=== PATIENT | female | born 1955 | race Caucasian/White ===

== ENCOUNTER → 2023-06-23 10:54 | Outpatient (REF) | payer OTHER, SELFPAY ==
[2023-06-23 12:46] LABS: % Basophils 0.7 % (0-2); % Eosinophils 3.2 % (0-6); % Immature Granulocytes 0.2 % (0-0.5); % Lymphocytes 45.5 % (20.5-51.1); % Monocytes 9.7 % (1.7-9.3); % Neutrophils 40.7 % (42.2-75.2); Absolute Eosinophils 0.1 10^3/uL (0-0.7); Absolute Monocytes 0.4 10^3/uL (0.1-0.6); Absolute Neutrophils 1.8 10^3/uL (1.4-6.5); Hematocrit 42.8 % (37.0-47.0); Hemoglobin 13.9 g/dL (12.0-16.0); Mean Corp Hgb Conc. 32.5 g/dL (33.0-37.0); Mean Corpuscular Hgb 30.8 pg (27.0-31.0); Mean Corpuscular Volume 94.7 fL (81.0-99.0); Mean Platelet Volume 10.6 fL (7.4-10.4); Nucleated Red Blood Cells % 0 %; Platelet Count 213 10^3/uL (130-400); Red Blood Cell Count 4.52 10^6/uL (4.20-5.40); Red Cell Dist. Width 12.5 % (11.5-14.5); White Blood Cell Count 4.3 10^3/uL (4.8-10.8)
[2023-06-23 12:49] LABS: Urine Albumin Negative (Neg - Trace); Urine Bilirubin Negative (Negative); Urine Character Clear (Clear); Urine Color Yellow; Urine Glucose Negative (Negative); Urine Ketone Negative (Negative); Urine Leukocyte Negative (Negative); Urine Nitrite Negative (Negative); Urine Occult Blood Negative (Negative); Urine Urobilinogen Negative (Neg - 1+)
[2023-06-23 13:03] LABS: ALT (SGPT) 32 U/L (0-35); AST (SGOT) 36 U/L (14-36); Albumin 4.4 g/dl (3.5-5.0); Alkaline Phosphatase 169 U/L (38-126); Blood Urea Nitrogen 18 mg/dl (7-17); Carbon Dioxide 28 mmol/L (22-30); Chloride 102 mmol/L (98-107); Glucose 106 mg/dl (70-99); HDL Cholesterol 87 mg/dl; LDL Cholesterol, Calculated 73 mg/dl; Potassium 4.4 mmol/L (3.5-5.1); Sodium 138 mmol/L (135-145); Total Bilirubin 0.5 mg/dl (0.2-1.3); Total Cholesterol 186 mg/dl (50-199); Total Protein 6.6 g/dl (6.3-8.2); Triglyceride 133 mg/dl (10-149); Very Low Density Lipoprotein 26 mg/dl (0-30); eGFR > 60.00
[2023-06-23 13:34] LABS: TSH Reflex To Free T4 2.06 uIU/ml (0.47-4.68)
[2023-06-23 14:10] LABS: Glycohemoglobin (HgbA1c) 5.8 % (4.0-5.6)
== END ==
LOC: HWLAB 10:54
PROVIDERS: ATTENDING PHYSICIAN Nurse Practitioner Family
DX: Z48.89 Encounter for other specified surgical aftercare (principal); K86.89 Other specified diseases of pancreas; Z01.89 Encounter for other specified special examinations; R73.09 Other abnormal glucose; E66.9 Obesity, unspecified; E55.9 Vitamin D deficiency, unspecified
CPT/HCPCS: 36415; 80053; 80061; 81003; 82306; 83036; 84443; 85025

== ENCOUNTER → 2023-06-29 11:13 | Outpatient (REF) | payer OTHER, SELFPAY ==
[2023-06-29 16:43] LABS: ALT (SGPT) 29 U/L (0-35); AST (SGOT) 33 U/L (14-36); Albumin 4.6 g/dl (3.5-5.0); Alkaline Phosphatase 185 U/L (38-126); Blood Urea Nitrogen 24 mg/dl (7-17); Calcium 10.3 mg/dl (8.4-10.2); Carbon Dioxide 27 mmol/L (22-30); Chloride 105 mmol/L (98-107); GGTP 57 U/L (12-43); Glucose 106 mg/dl (70-99); Potassium 4.5 mmol/L (3.5-5.1); Sodium 138 mmol/L (135-145); Total Bilirubin 0.6 mg/dl (0.2-1.3); Total Protein 6.9 g/dl (6.3-8.2); eGFR > 60.00
[2023-07-01 12:13] LABS: Intact PTH 70.5 pg/ml (13.6-85.8)
== END ==
LOC: HWLAB 11:13
PROVIDERS: ATTENDING PHYSICIAN Nurse Practitioner Family; FAMILY PHYSICIAN Internal Medicine
DX: R74.8 Abnormal levels of other serum enzymes (principal)
CPT/HCPCS: 36415; 80053; 82977; 83970

== ENCOUNTER → 2023-08-31 11:30 | Outpatient (REF) | payer OTHER, SELFPAY ==
[2023-08-31 16:57] LABS: ALT (SGPT) 31 U/L (0-35); AST (SGOT) 35 U/L (14-36); Albumin 4.5 g/dl (3.5-5.0); Alkaline Phosphatase 171 U/L (38-126); Blood Urea Nitrogen 23 mg/dl (7-17); Calcium 10.3 mg/dl (8.4-10.2); Carbon Dioxide 26 mmol/L (22-30); Chloride 105 mmol/L (98-107); GGTP 46 U/L (12-43); Glucose 109 mg/dl (70-99); Potassium 4.6 mmol/L (3.5-5.1); Sodium 139 mmol/L (135-145); Total Bilirubin 0.4 mg/dl (0.2-1.3); Total Protein 6.8 g/dl (6.3-8.2); eGFR > 60.00
== END ==
LOC: HWLAB 11:30
PROVIDERS: ATTENDING PHYSICIAN Internal Medicine
DX: R74.8 Abnormal levels of other serum enzymes (principal)
CPT/HCPCS: 36415; 80053; 82977

== ENCOUNTER → 2023-11-22 11:13 | Outpatient (REF) | payer OTHER, SELFPAY | LOC: MRI 3T 11:13 | PROVIDERS: ATTENDING PHYSICIAN Student in an Organized Health Care Education/Training Program; FAMILY PHYSICIAN Internal Medicine | DX: M25.511 Pain in right shoulder (principal) | CPT/HCPCS: 73221 ==

== ENCOUNTER → 2023-12-15 12:00 | Outpatient (REF) | payer OTHER, SELFPAY ==
[2023-12-15 16:21] LABS: Blood Urea Nitrogen 23 mg/dl (7-17); Calcium 10.9 mg/dl (8.4-10.2); Carbon Dioxide 29 mmol/L (22-30); Chloride 103 mmol/L (98-107); Glucose 103 mg/dl (70-99); Potassium 4.9 mmol/L (3.5-5.1); Sodium 141 mmol/L (135-145); eGFR > 60.00
[2023-12-15 16:23] LABS: % Basophils 0.6 % (0-2); % Eosinophils 2.2 % (0-6); % Immature Granulocytes 0.2 % (0-0.5); % Lymphocytes 32.9 % (20.5-51.1); % Monocytes 8.6 % (1.7-9.3); % Neutrophils 55.5 % (42.2-75.2); Absolute Eosinophils 0.1 10^3/uL (0-0.7); Absolute Lymphocytes 1.6 10^3/uL (1.2-3.4); Absolute Monocytes 0.4 10^3/uL (0.1-0.6); Absolute Neutrophils 2.8 10^3/uL (1.4-6.5); Hematocrit 43.5 % (37.0-47.0); Hemoglobin 14.6 g/dL (12.0-16.0); Mean Corp Hgb Conc. 33.6 g/dL (33.0-37.0); Mean Corpuscular Volume 95.4 fL (81.0-99.0); Mean Platelet Volume 10.8 fL (7.4-10.4); Nucleated Red Blood Cells % 0 %; Platelet Count 203 10^3/uL (130-400); Red Blood Cell Count 4.56 10^6/uL (4.20-5.40); Red Cell Dist. Width 12.3 % (11.5-14.5)
== END ==
LOC: HWLAB 12:00
PROVIDERS: ATTENDING PHYSICIAN Orthopaedic Surgery Hand Surgery; FAMILY PHYSICIAN Internal Medicine
DX: Z01.818 Encounter for other preprocedural examination (principal)
CPT/HCPCS: 36415; 80048; 85025; 93005

== ENCOUNTER → 2024-03-22 10:56 | Outpatient (REF) | payer OTHER, SELFPAY | LOC: HWWDC 10:56 | PROVIDERS: ATTENDING PHYSICIAN Internal Medicine; REFERRING PHYSICIAN Obstetrics & Gynecology | DX: Z12.31 Encounter for screening mammogram for malignant neoplasm of breast (principal) | CPT/HCPCS: 77063; 77067 ==

== ENCOUNTER → 2024-05-11 09:13 | Outpatient (REF) | payer OTHER, SELFPAY ==
[2024-05-11 10:09] LABS: % Basophils 0.5 % (0-2); % Eosinophils 3.5 % (0-6); % Immature Granulocytes 0.3 % (0-0.5); % Lymphocytes 32.1 % (20.5-51.1); % Monocytes 7.4 % (1.7-9.3); % Neutrophils 56.2 % (42.2-75.2); Absolute Eosinophils 0.2 10^3/uL (0-0.7); Absolute Lymphocytes 1.9 10^3/uL (1.2-3.4); Absolute Monocytes 0.4 10^3/uL (0.1-0.6); Absolute Neutrophils 3.3 10^3/uL (1.4-6.5); Hematocrit 46.1 % (37.0-47.0); Mean Corp Hgb Conc. 32.5 g/dL (33.0-37.0); Mean Corpuscular Hgb 30.3 pg (27.0-31.0); Mean Corpuscular Volume 93.1 fL (81.0-99.0); Mean Platelet Volume 10.3 fL (7.4-10.4); Nucleated Red Blood Cells % 0 %; Platelet Count 210 10^3/uL (130-400); Red Blood Cell Count 4.95 10^6/uL (4.20-5.40); Red Cell Dist. Width 12.3 % (11.5-14.5); White Blood Cell Count 5.9 10^3/uL (4.8-10.8)
[2024-05-11 10:10] LABS: Ionized Calcium 1.35 mMOL/L (1.15-1.33)
[2024-05-11 10:31] LABS: ALT (SGPT) 37 U/L (0-35); AST (SGOT) 35 U/L (14-36); Albumin 4.8 g/dl (3.5-5.0); Alkaline Phosphatase 175 U/L (38-126); Blood Urea Nitrogen 20 mg/dl (7-17); Calcium 10.3 mg/dl (8.4-10.2); Carbon Dioxide 28 mmol/L (22-30); Chloride 102 mmol/L (98-107); Glucose 116 mg/dl (70-99); Potassium 4.3 mmol/L (3.5-5.1); Sodium 140 mmol/L (135-145); Total Bilirubin 0.3 mg/dl (0.2-1.3); Total Protein 7.2 g/dl (6.3-8.2); Uric Acid 3.9 mg/dl (2.5-6.2); eGFR > 60.00
[2024-05-11 10:36] LABS: Erythrocyte Sed Rate 4 mm/hour (0-20)
[2024-05-11 10:37] LABS: C-Reactive Protein < 5.00 mg/L (0.0-10.00)
[2024-05-11 10:54] LABS: Vitamin D, 25-OH*** 41.3 ng/mL (30-80)
[2024-05-14 04:02] LABS: Vitamin D 1,25 Dihydroxy 75.2 pg/mL (19.9-79.3)
[2024-05-14 07:43] LABS: CCP Antibody IgG/IgA 75 Units (0-19)
[2024-05-14 08:51] LABS: ANA, IgG Reflex to HEp-2 None Detected (None Detected)
[2024-05-14 09:13] LABS: Rheumatoid Agglutinin Less Than 10 IU (<10 IU)
== END ==
LOC: REG 09:13
PROVIDERS: ATTENDING PHYSICIAN Student in an Organized Health Care Education/Training Program; FAMILY PHYSICIAN Internal Medicine
DX: E83.52 Hypercalcemia (principal); M25.40 Effusion, unspecified joint; M25.561 Pain in right knee; M25.562 Pain in left knee; M25.60 Stiffness of unspecified joint, not elsewhere classified; M54.9 Dorsalgia, unspecified; M79.10 Myalgia, unspecified site; M79.641 Pain in right hand; M79.642 Pain in left hand; M79.674 Pain in right toe(s); M85.80 Other specified disorders of bone density and structure, unspecified site; Z82.69 Family history of other diseases of the musculoskeletal system and connective tissue
CPT/HCPCS: 36415; 80053; 82306; 82330; 82652; 84155; 84165; 84550; 85025; 85652; 86038; 86140; 86200; 86430

== ENCOUNTER → 2024-05-30 13:17 | Outpatient (REF) | payer OTHER, SELFPAY | LOC: HWRAD 13:17 | PROVIDERS: ATTENDING PHYSICIAN Student in an Organized Health Care Education/Training Program; FAMILY PHYSICIAN Internal Medicine | DX: E83.52 Hypercalcemia (principal); M25.40 Effusion, unspecified joint; M25.60 Stiffness of unspecified joint, not elsewhere classified; M79.10 Myalgia, unspecified site; M79.641 Pain in right hand; M79.642 Pain in left hand; M85.80 Other specified disorders of bone density and structure, unspecified site | CPT/HCPCS: 73120; 73564 ==

== ENCOUNTER → 2024-06-01 10:35 | Outpatient (REF) | payer OTHER, SELFPAY | LOC: HWRAD 10:35 | PROVIDERS: ATTENDING PHYSICIAN Student in an Organized Health Care Education/Training Program; FAMILY PHYSICIAN Internal Medicine | DX: E83.52 Hypercalcemia (principal); M25.40 Effusion, unspecified joint; M25.60 Stiffness of unspecified joint, not elsewhere classified; M79.10 Myalgia, unspecified site; M85.88 Other specified disorders of bone density and structure, other site; Z78.0 Asymptomatic menopausal state | CPT/HCPCS: 77080 ==

== ENCOUNTER → 2024-08-03 10:56 | Outpatient (REF) | payer OTHER, SELFPAY ==
[2024-08-03 15:34] LABS: Erythrocyte Sed Rate 1 mm/hour (0-20)
[2024-08-03 15:49] LABS: % Basophils 0.5 % (0-2); % Eosinophils 2.9 % (0-6); % Immature Granulocytes 0.2 % (0-0.5); % Lymphocytes 30.9 % (20.5-51.1); % Monocytes 8.3 % (1.7-9.3); % Neutrophils 57.2 % (42.2-75.2); Absolute Eosinophils 0.2 10^3/uL (0-0.7); Absolute Lymphocytes 1.7 10^3/uL (1.2-3.4); Absolute Monocytes 0.5 10^3/uL (0.1-0.6); Absolute Neutrophils 3.2 10^3/uL (1.4-6.5); Mean Corp Hgb Conc. 32.6 g/dL (33.0-37.0); Mean Corpuscular Hgb 30.7 pg (27.0-31.0); Mean Corpuscular Volume 94.3 fL (81.0-99.0); Mean Platelet Volume 10.9 fL (7.4-10.4); Nucleated Red Blood Cells % 0 %; Platelet Count 178 10^3/uL (130-400); Red Blood Cell Count 4.56 10^6/uL (4.20-5.40); Red Cell Dist. Width 11.9 % (11.5-14.5); White Blood Cell Count 5.6 10^3/uL (4.8-10.8)
[2024-08-03 15:53] LABS: C-Reactive Protein < 5.00 mg/L (0.0-10.00)
[2024-08-03 16:43] LABS: ALT (SGPT) 30 U/L (0-35); AST (SGOT) 33 U/L (14-36); Albumin 4.1 g/dl (3.5-5.0); Alkaline Phosphatase 191 U/L (38-126); Blood Urea Nitrogen 23 mg/dl (7-17); Calcium 10.2 mg/dl (8.4-10.2); Carbon Dioxide 29 mmol/L (22-30); Chloride 106 mmol/L (98-107); Glucose 111 mg/dl (70-99); Potassium 4.8 mmol/L (3.5-5.1); Sodium 140 mmol/L (135-145); Total Bilirubin 0.4 mg/dl (0.2-1.3); Total Protein 6.4 g/dl (6.3-8.2); eGFR > 60.00
[2024-08-03 17:08] LABS: Hepatitis B Surface Antigen Negative (Negative)
[2024-08-03 17:26] LABS: Hepatitis B Core Ab, Total Negative (Negative); Hepatitis B Surface Antibody Negative; Hepatitis C Antibody Negative (Negative)
== END ==
LOC: HWLAB 10:56
PROVIDERS: ATTENDING PHYSICIAN Student in an Organized Health Care Education/Training Program; FAMILY PHYSICIAN Internal Medicine
DX: E83.52 Hypercalcemia (principal); M05.9 Rheumatoid arthritis with rheumatoid factor, unspecified; M25.40 Effusion, unspecified joint; M25.561 Pain in right knee; M25.562 Pain in left knee; M25.60 Stiffness of unspecified joint, not elsewhere classified; M54.9 Dorsalgia, unspecified; M79.10 Myalgia, unspecified site; M79.641 Pain in right hand; M79.642 Pain in left hand; M79.674 Pain in right toe(s); M85.80 Other specified disorders of bone density and structure, unspecified site; Z79.899 Other long term (current) drug therapy; Z82.69 Family history of other diseases of the musculoskeletal system and connective tissue
CPT/HCPCS: 36415; 80053; 85025; 85652; 86140; 86704; 86706; 86803; 87340

== ENCOUNTER → 2024-08-07 09:47 | Outpatient (REF) | payer OTHER, SELFPAY ==
[2024-08-09 05:58] LABS: Quantiferon Mitogen minus NIL 9.95 IU/mL; Quantiferon NIL 0.05 IU/mL; Quantiferon TB Gold Plus Negative (Negative)
== END ==
LOC: HWLAB 09:47
PROVIDERS: ATTENDING PHYSICIAN Student in an Organized Health Care Education/Training Program; FAMILY PHYSICIAN Internal Medicine
DX: Z79.899 Other long term (current) drug therapy (principal); E83.52 Hypercalcemia; M05.9 Rheumatoid arthritis with rheumatoid factor, unspecified; M25.40 Effusion, unspecified joint; M25.561 Pain in right knee; M25.562 Pain in left knee; M25.60 Stiffness of unspecified joint, not elsewhere classified; M54.9 Dorsalgia, unspecified; M79.10 Myalgia, unspecified site; M79.641 Pain in right hand; M79.642 Pain in left hand; M79.674 Pain in right toe(s); M85.80 Other specified disorders of bone density and structure, unspecified site
CPT/HCPCS: 36415; 86480

== ENCOUNTER → 2024-09-06 09:43 | Outpatient (REF) | payer OTHER, SELFPAY ==
[2024-09-06 10:24] LABS: Ionized Calcium 1.32 mMOL/L (1.15-1.33)
[2024-09-06 10:50] LABS: C-Reactive Protein < 5.00 mg/L (0.0-10.00)
[2024-09-06 10:56] LABS: Intact PTH 97.3 pg/ml (13.6-85.8)
[2024-09-06 10:59] LABS: ALT (SGPT) 33 U/L (0-35); AST (SGOT) 34 U/L (14-36); Albumin 4.8 g/dl (3.5-5.0); Alkaline Phosphatase 161 U/L (38-126); Blood Urea Nitrogen 22 mg/dl (7-17); Calcium 10.7 mg/dl (8.4-10.2); Carbon Dioxide 28 mmol/L (22-30); Chloride 107 mmol/L (98-107); GGTP 55 U/L (12-43); Glucose 116 mg/dl (70-99); Magnesium 1.9 mg/dl (1.6-2.3); Phosphorus 3.7 mg/dl (2.5-4.5); Potassium 4.5 mmol/L (3.5-5.1); Sodium 142 mmol/L (135-145); Total Bilirubin 0.4 mg/dl (0.2-1.3); Total Protein 7.2 g/dl (6.3-8.2); eGFR > 60.00
[2024-09-06 12:52] LABS: Erythrocyte Sed Rate 4 mm/hour (0-20)
[2024-09-07 21:48] LABS: Vitamin D 1,25 Dihydroxy 54.7 pg/mL (19.9-79.3)
[2024-09-08 00:12] LABS: IgG Subclass 4 22 mg/dL (1-123)
[2024-09-08 00:21] LABS: Angiotensin-1-converting Enzym 108 U/L (16-85); CTx 937 pg/mL
[2024-09-08 02:36] LABS: Creatinine, Urine per Volume 106 mg/dL; NTx 60
== END ==
LOC: REG 09:43
PROVIDERS: ATTENDING PHYSICIAN Student in an Organized Health Care Education/Training Program; FAMILY PHYSICIAN Internal Medicine
DX: E83.52 Hypercalcemia (principal); K76.0 Fatty (change of) liver, not elsewhere classified; M05.9 Rheumatoid arthritis with rheumatoid factor, unspecified; M25.40 Effusion, unspecified joint; M25.561 Pain in right knee; M25.562 Pain in left knee; M25.60 Stiffness of unspecified joint, not elsewhere classified; M54.9 Dorsalgia, unspecified; M79.10 Myalgia, unspecified site; M79.641 Pain in right hand; M79.642 Pain in left hand; M79.674 Pain in right toe(s); M85.80 Other specified disorders of bone density and structure, unspecified site; R74.8 Abnormal levels of other serum enzymes; R76.8 Other specified abnormal immunological findings in serum; R94.8 Abnormal results of function studies of other organs and systems; Z79.899 Other long term (current) drug therapy; Z82.69 Family history of other diseases of the musculoskeletal system and connective tissue
CPT/HCPCS: 36415; 80053; 82164; 82248; 82330; 82523; 82652; 82787; 82977; 83735; 83970; 84100; 85652; 86140

== ENCOUNTER → 2024-10-03 09:24 | Outpatient (REF) | payer OTHER, SELFPAY ==
[2024-10-03 10:50] LABS: Alkaline Phosphatase, Total 149 U/L (38-126); GGTP 30 U/L (12-43)
[2024-10-03 11:34] LABS: Alk Phos After Heat 86; Alkaline Phosphatase Percent 57.72
[2024-10-05 15:07] LABS: F-Actin Antibody IgG 4 Units (0-19); Mitochondrial M2 Ab, IgG 5.6 Units (0.0-24.9)
== END ==
LOC: REG 09:24
PROVIDERS: ATTENDING PHYSICIAN Student in an Organized Health Care Education/Training Program; FAMILY PHYSICIAN Internal Medicine
DX: E83.52 Hypercalcemia (principal); K76.9 Liver disease, unspecified; M06.9 Rheumatoid arthritis, unspecified; M25.40 Effusion, unspecified joint; R74.8 Abnormal levels of other serum enzymes; R76.8 Other specified abnormal immunological findings in serum; R79.89 Other specified abnormal findings of blood chemistry; R94.8 Abnormal results of function studies of other organs and systems; Z78.9 Other specified health status
CPT/HCPCS: 36415; 82977; 84078; 86015; 86381

== ENCOUNTER → 2024-10-05 14:03 | Outpatient (REF) | payer OTHER, SELFPAY | LOC: HWRAD 14:03 | PROVIDERS: ATTENDING PHYSICIAN Student in an Organized Health Care Education/Training Program; FAMILY PHYSICIAN Internal Medicine | DX: K76.9 Liver disease, unspecified (principal); K82.8 Other specified diseases of gallbladder; R74.8 Abnormal levels of other serum enzymes; R94.8 Abnormal results of function studies of other organs and systems | CPT/HCPCS: 76700 ==

== ENCOUNTER → 2024-10-10 08:39 | Outpatient (REF) | payer OTHER, SELFPAY | LOC: RAD 08:39 | PROVIDERS: ATTENDING PHYSICIAN Internal Medicine | DX: R79.89 Other specified abnormal findings of blood chemistry (principal) | CPT/HCPCS: 76536; 78071; A9500 ==

== ENCOUNTER → 2025-03-07 09:50 | Outpatient (REF) | payer OTHER, SELFPAY ==
[2025-03-07 18:38] LABS: Urine Character Cloudy (Clear)
[2025-03-07 19:39] LABS: Urine Red Blood Cell 0-2 /HPF (0-2); Urine White Cell 0-2 /HPF (0-5)
== END ==
LOC: CLAB 09:50
PROVIDERS: ATTENDING PHYSICIAN Nurse Practitioner Primary Care
DX: R39.9 Unspecified symptoms and signs involving the genitourinary system (principal)
CPT/HCPCS: 81003; 81015; 87086

== ENCOUNTER → 2025-03-21 09:30 | Outpatient (REF) | payer OTHER, SELFPAY ==
[2025-03-21 10:27] LABS: Hematocrit 44.1 % (37.0-47.0); Hemoglobin 14.1 g/dL (12.0-16.0); Mean Corp Hgb Conc. 32.0 g/dL (33.0-37.0); Mean Corpuscular Volume 97.8 fL (81.0-99.0); Nucleated Red Blood Cells % 0 %; Platelet Count 197 10^3/uL (130-400); Red Cell Dist. Width 11.9 % (11.5-14.5)
[2025-03-21 10:33] LABS: INR 0.96; PT 12.5 Sec (11.4-14.6)
[2025-03-21 10:34] LABS: APTT 27.8 Sec (23.4-35.0)
[2025-03-21 11:07] LABS: ALT (SGPT) 37 U/L (0-35); AST (SGOT) 35 U/L (14-36); Albumin 4.4 g/dl (3.5-5.0); Alkaline Phosphatase 156 U/L (38-126); Blood Urea Nitrogen 20 mg/dl (7-17); Calcium 10.3 mg/dl (8.4-10.2); Carbon Dioxide 29 mmol/L (22-30); Chloride 106 mmol/L (98-107); GGTP 39 U/L (12-43); Glucose 98 mg/dl (70-99); HDL Cholesterol 75 mg/dl; LDL Cholesterol, Calculated 78 mg/dl; Potassium 4.4 mmol/L (3.5-5.1); Sodium 137 mmol/L (135-145); Total Protein 6.8 g/dl (6.3-8.2); Very Low Density Lipoprotein 14 mg/dl (0-30); eGFR > 60.00
[2025-03-21 11:30] LABS: Vitamin D, 25-OH*** 44.2 ng/mL (30-80)
== END ==
LOC: REG 09:30
PROVIDERS: ATTENDING PHYSICIAN Nurse Practitioner Primary Care; FAMILY PHYSICIAN Internal Medicine
DX: R10.20 Pelvic and perineal pain unspecified side (principal); R79.89 Other specified abnormal findings of blood chemistry; E83.52 Hypercalcemia; K76.0 Fatty (change of) liver, not elsewhere classified
CPT/HCPCS: 36415; 80053; 80061; 82306; 82330; 82977; 83970; 84443; 85025; 85610; 85730

== ENCOUNTER → 2025-04-05 09:36 | Outpatient (REF) | payer OTHER, SELFPAY ==
[2025-04-05 16:52] LABS: 24 Hour Urine Total Volume 1550 ml
== END ==
LOC: REG 09:36
PROVIDERS: ATTENDING PHYSICIAN Nurse Practitioner Primary Care; FAMILY PHYSICIAN Internal Medicine
DX: R79.89 Other specified abnormal findings of blood chemistry (principal)
CPT/HCPCS: 81050; 82340; 82570